=== PATIENT | female | born 1980 | race Caucasian/White ===

== ENCOUNTER 2023-01-01 09:05 | Outpatient (CLI) | payer BC, SELFPAY ==
--- NOTE | 2023-01-01 09:15 | CRLHL7_ITS ---
For Patients: As a result of the Century Cures Act, medical imaging exams and procedure reports are released immediately into your electronic medical record. You may view this report before your referring provider. If you have questions, please contact your health care provider. BILATERAL SCREENING MAMMOGRAM WITH COMPUTER-AIDED DETECTION AND TOMOSYNTHESIS TECHNIQUE: CC and MLO views were obtained. These mammographic images have been obtained using full-field digital technique. These mammographic images were interpreted with the benefit of computer-aided detection. Breast Tomosynthesis was used in this interpretation. COMPARISON FILM: 12/26/21, 10/18/20. FINDINGS: The breasts are heterogeneously dense, which may obscure small masses IMPRESSION: There is no radiographic evidence for malignancy. ASSESSMENT: BI-RADS Category 1: Negative RECOMMENDATION: Routine screening mammogram in 1 year. A lay language report of this examination will be provided to the patient. Lisa Adhikari M.D. Diagnostic/Breast Radiologist [email or web address] marte/Dictated by: Lisa Adhikari MD @ 01/01/2023 10:28:00 AM (Electronically Signed)
== END 2023-01-01 09:06 | disposition home or self-care (01) ==
LOC: MAMMO 09:07
PROVIDERS: Visit Provider Physician Assistant
DX: Z12.31 Encounter for screening mammogram for malignant neoplasm of breast (principal); R92.2 Inconclusive mammogram
CPT/HCPCS: 77063; 77067

== ENCOUNTER 2023-09-02 08:06 | Outpatient (CLI) | payer BC, SELFPAY ==
--- NOTE | 2023-09-02 08:15 | CRLHL7_ITS ---
For Patients: As a result of the Century Cures Act, medical imaging exams and procedure reports are released immediately into your electronic medical record. You may view this report before your referring provider. If you have questions, please contact your health care provider. INDICATION: IRREGULAR BLEEDING COMPARISON: 06/28/2015 TECHNIQUE: 2D mccrary scale and color Doppler images were acquired of the pelvis using a transabdominal and transvaginal approach. FINDINGS: Sonographic images demonstrate a normal size and smooth outer contour of the uterus. Uterus measures 8.2 cm in length by 3.5 cm in AP diameter by 4.2 cm in transverse dimension. The myometrium has a normal uniform echotexture. The endometrial lining appears heterogeneous and thickened and measures 15 mm in composite thickness. Possible endometrial polyp measuring 12 x 10 x 13 millimeters. The right ovary measures 3.4 x 1.7 x 2.1 cm in size and the left ovary is not visualized. 2.0 cm simple cyst right ovary. The right ovary demonstrates normal arterial and venous blood flow on color Doppler analysis. There are no suspicious fluid collections within the cul-de-sac. IMPRESSION: Thickened and heterogeneous endometrium measuring 15 millimeters of possible endometrial polyp measuring 13 millimeters. No uterine fibroid. Dictated by Yanick Pollock MD @ 09/02/2023 10:12:06 AM (Electronically Signed)
== END 2023-09-02 08:07 | disposition home or self-care (01) ==
LOC: US 08:06
PROVIDERS: PCP Physician Assistant; Visit Provider Physician Assistant
DX: N92.6 Irregular menstruation, unspecified (principal); R93.89 Abnormal findings on diagnostic imaging of other specified body structures; Z87.42 Personal history of other diseases of the female genital tract
CPT/HCPCS: 76830; 76856; 84443; 84703

== ENCOUNTER 2023-11-10 07:56 | Day surgery (SDC) | payer BC, SELFPAY ==
[2023-11-10 08:08] VITALS: BMI 33.3
[2023-11-10 08:19] VITALS: BP 146/86; PULSE 95; RESP 16; TEMP 37.2; O2SAT 99
[2023-11-10 08:29] LABS: Hemoglobin* 13.4 gm/dL (12.0-16.0)
[2023-11-10] MEDS: LACTATED RINGERS 1000 ML 1,000 ML 100 ML IV (08:34)
[2023-11-10 08:38] LABS: Ur HCG Qualitative* Negative (Negative)
--- NOTE | 2023-11-10 09:38 | W.ANESCHARGE ---
Anesthesia Charges Start Date/Time Anesthesia Start Date: 11/10/23 Anesthesia Start Time: 08:54 Stop Date/Time Anesthesia Stop Date: 11/10/23 Anesthesia Stop Time: 09:41
[2023-11-10 09:39] VITALS: BP 127/76; PULSE 90; RESP 16; TEMP 36.8; O2SAT 97
--- NOTE | 2023-11-10 09:42 | W.PM.H&PU ---
History & Physical Update History & Physical Update H&P Reviewed and patient assessed: No changes noted
--- NOTE | 2023-11-10 09:57 | W.PM.GYNPROC ---
Procedure Note Time Seen by Provider: 11:37 Date of procedure: 11/10/23 Procedure: Preoperative diagnosis: Mary is a 43 year-old with abnormal uterine bleeding - secondary to polypectomy. Postoperative diagnosis: Same Procedure: Hysteroscopy, polypectomy, and dilation and curettage. Anesthesia: Conscious sedation with paracervical block. Surgeon:Suzanna Aldana MD Estimated blood loss: <5 mL Specimen: Endometrial curettings/polyp to pathology. IVF: 600 cc UOP: 50 cc Findings: Exam under anesthesia: Cervix palpates normal. Uterus: anteverted position, 6 week size, mobile, without nodularity/masses palpable. Adnexa were without fullness or nodularity. On hysteroscopy: Obvious pedunculated polyp noted near the right tubal ostia. Normal bilateral tubal ostia. Procedure: Mary was taken to the operating where conscious sedation was found to be adequate. She was placed in the dorsal lithotomy position. An exam under anesthesia was performed with findings stated above. She was then prepped and draped in normal sterile manner. A bivalve metal speculum was placed in the vaginal canal. The cervix and vaginal canal appear normal. A paracervical block was placed using 1% lidocaine with epinephrine: 5 mL injected at the 4 and 8 o'clock positions on the cervix. The anterior lip of the cervix was then grasped with a long tenaculum. The cervix was dilated to Hegar 6. The uterus sounded to 8 cm. The hysteroscope advanced into the uterus and a diagnostic hysteroscopy was performed with findings stated above. Normal saline was used as the insufflation medium. The soft tissue shaver was used to perform the polypectomy and global sampling afterwards. The hysteroscope was then removed. Fluid deficit at the end of the procedure 35 mL. The hysteroscope and Allis clamp were removed from the uterus and cervix. Excellent hemostasis noted. Nothing was used for hemostasis. The patient tolerated the procedure well. Sponge, lap and instruments counts were correct at the end of the procedure. The patient was awakened from anesthesia and taken to the recovery area in stable condition. Surgical debrief performed at the end of the procedure.
[2023-11-10 10:02] VITALS: BP 113/70; PULSE 77; RESP 16; O2SAT 98
[2023-11-10 10:44] VITALS: BP 128/74; PULSE 74; RESP 16; O2SAT 99
--- NOTE | 2023-11-10 11:40 | W.ANESCHARGE ---
Anesthesia Charges Start Date/Time Anesthesia Start Date: 11/10/23 Anesthesia Start Time: 08:54 Stop Date/Time Anesthesia Stop Date: 11/10/23 Anesthesia Stop Time: 09:41
== END 2023-11-10 11:08 | disposition home or self-care (01) ==
PROVIDERS: PCP Family Medicine; Visit Provider Obstetrics & Gynecology
PROC: 0UDB8ZZ Extraction of Endometrium, Via Natural or Artificial Opening Endoscopic (ICD-10-PCS; CPT 58558; principal; 2023-11-10 09:15)
DX: N93.8 Other specified abnormal uterine and vaginal bleeding (principal); N84.0 Polyp of corpus uteri
CPT/HCPCS: 58558; 00952; 36415; 81025; 85018; 86850; 86900; 86901; 88305; J1100; J2250; J2405; J2704; J3010; J7120

== ENCOUNTER 2024-01-14 10:03 | Outpatient (CLI) | payer BC, SELFPAY ==
--- NOTE | 2024-01-14 10:15 | MM_ITS ---
Patient: SISSY MESSER Facility:?[facility] Patient ID:?[id number] Site Patient ID:?[id number]. Site :?[id number] Study:?XRay-Breast Bilateral 3D screening mammogram w/cad-01/14/2024 10:29:24 AM Ordering Physician:KAMILLA Final Report: BILATERAL SCREENING MAMMOGRAM WITH COMPUTER-AIDED DETECTION AND TOMOSYNTHESIS TECHNIQUE: CC and MLO views were obtained. These mammographic images have been obtained using full-field digital technique. These mammographic images were interpreted with the benefit of computer-aided detection. Breast Tomosynthesis was used in this interpretation. COMPARISON FILM: 01/01/23, 12/26/21, 10/18/20. FINDINGS: The breasts are extremely dense, which lowers the sensitivity of mammography. IMPRESSION: There is no radiographic evidence for malignancy. ASSESSMENT: BI-RADS Category 1: Negative RECOMMENDATION: Routine screening mammogram in 1 year. A lay language report of this examination will be provided to the patient. Yanick Pollock M.D. Diagnostic Radiologist [email or web address] DSM/sp R& Transcribed: 2:54 p.m. SP/Dictated by: Yanick Pollock MD @ 01/14/2024 12:10:00 PM Signed by:?Yanick Pollock MD @01/14/2024 3:00:00 PM (Electronic Signature)
== END 2024-01-14 10:04 | disposition home or self-care (01) ==
LOC: MAMMO 10:04
PROVIDERS: PCP Family Medicine; Visit Provider Physician Assistant
DX: Z12.31 Encounter for screening mammogram for malignant neoplasm of breast (principal); R92.2 Inconclusive mammogram
CPT/HCPCS: 77063; 77067

== ENCOUNTER 2024-01-21 10:24 | Outpatient (CLI) | payer BC, SELFPAY | END 2024-01-21 10:25 | disposition home or self-care (01) | PROVIDERS: PCP Family Medicine; Visit Provider Physician Assistant | DX: Z13.1 Encounter for screening for diabetes mellitus (principal); Z13.29 Encounter for screening for other suspected endocrine disorder; Z13.220 Encounter for screening for lipoid disorders | CPT/HCPCS: 80061; 82947; 84443 ==

== ENCOUNTER 2024-04-14 14:42 | Outpatient (CLI) | payer BC, SELFPAY ==
--- OUTSIDE RECORDS SUMMARY | 2024-04-14 14:44 | XMS_ITS | Clinical Summary ---
Author Organization [facility] Address [place], [place] [address] Care Team Providers Care Grades 1 Thru 6 Visiting Teacher Name Role Phone Pcp, No Primary Care Provider Unavailabl e Allergies Active Allergy Reactions Criticality Noted Date Comments Benzoyl Peroxide-Blemish Cnclr Rash 03/25 Medications Medication Sig Dispensed Refills Start Date End Date Status mitoMYcin 0.15 mg/mL ophth. soln. 0.5 mL syringe(DANIEL AMB MIXTURE) Use as directed for procedure. Keep frozen. Expires: 0.5 mL 08/11/2013 Active levonorgestrel-ethin yl estrad, 0.1mg-20mcg, (AVIANE) 0.1-20 mg-mcg tablet Take 1 tablet by mouth once daily. 0 03/25/2015 Active hydrOXYzine HCl (ATARAX) 10 mg tabletIndications:Co ntact dermatitis 1-2 pills every 6 hours for itching. 24 tablet 2 03/25/2015 Active hydrocortisone 2.5% creamIndications:Con tact dermatitis Apply topically to affected area(s) 2 times daily. 45 g 1 03/25/2015 Active Active Problems Problem Noted Date Diagnosed Date Vitamin D deficiency 11/03/2010 Encounters Date Type Department Care Team Description 01/21/2024 Lab Requisition [facility] [phone] Aubree Davila PA-C from Last 3 Months Immunizations Name Administration Dates Next Due Td (Age >=7 Years) 03/19/2005 Family History Medical History Relation Name Comments Diabetes Maternal Grandmother Hypertension Maternal Grandmother Hypertension Mother Diabetes Paternal Aunt 1 Cancer-breast Paternal Aunt 2 Alcohol/Drug Paternal Grandfather Cancer Paternal Grandmother lung Diabetes Paternal Uncle 1 Alcohol/Drug Paternal Uncle 2 Seizures Sister Relation Name Status Comments Maternal Grandmother Mother Paternal Aunt 1 Paternal Aunt 2 Paternal Grandfather Paternal Grandmother Paternal Uncle 1 Paternal Uncle 2 Sister Social History Tobacco Use Types Packs/Day Years Used Date Smoking Tobacco: Former Cigarettes 0.2 3 0 03/25/2008 - 03/25/2011 Smokeless Tobacco: Never Tobacco Cessation:Counseling Given: Yes Comments:Quit 3-4 years ago Alcohol Use Standard Drinks/Week Comments Yes 0 (1 standard drink = 0.6 oz pur e alcohol) occasional Sex and Gender Information Value Date Recorded Sex Assigned at Not on file Gender Identity Not on file Sexual Orientation Not on file Obstetrics History Last Filed Vital Signs Vital Sign Reading Time Taken Comments Blood Pressure 117/72 03/02/2017 4:51 PM CDT Pulse 74 03/02/2017 4:51 PM CDT Temperature 37.4 ??C (99.3 ??F) 03/02/2017 4:51 PM CD T Respiratory Rate - - Oxygen Saturation 100% 03/02/2017 4:51 PM CDT Inhaled Oxygen Concentration - - Weight 74.3 kg (163 lb 11.2 oz) 03/02/2017 4:51 PM CDT Height 166.5 cm (5' 5.55) 03/02/2017 4:51 PM CD T Body Mass Index 26.79 03/02/2017 4:51 PM CDT Plan of Treatment Health Maintenance Due Date Last Done Comments Tdap 1991 Depression screening for age 12+ 1992 HIV for age 15-65 1995 Hepatitis C screening for age 18-79 1998 Tetanus booster 03/19/2015 03/19/2005 BMI (ht and wt on same day) for age 18+ 03/02/2018 03/02/2017 COVID-19 vaccine series (2022- season) 2023 Influenza for age 9-49 07/09/2024 Pap test for age 21-65 01/20/2027 4, 01/21/2024, 08/11/2019, Additional history exists Pneumococcal series for age 6-64 Aged Out No longer eligible based on patient's age to complete this topic Procedures Procedure Name Priority Date/Time Associated Diagnosis Comments LAB TRACKING EVENT Routine 01/21/2024 10 :35 AM CDT CORNER BEAD OPERATOR THIN PREP PAP SCREEN IMAGED Routine 01/21/2024 10:35 AM CDT HPV THIN PREP Routine 01/21/2024 10:35 AM CDT from Last 3 Months Results * LAB TRACKING EVENT (01/21/2024 10:35 AM CDT) Other (Other) Client Collect / Unknown 01/21/2024 10:35 AM CDT 01/21/2024 3:34 PM CDT Aubree Davila PA-C LAB BILL ONLY [facility] [address] [place] [address], * CORNER BEAD OPERATOR THIN PREP PAP SCREEN IMAGED (01/21/2024 10:35 AM CDT) Case Report Gynecologic Cytology Report ? Case: [id number] ? Authorizing Provider: ??Aubree Davila PA-C ?Collected: ? 01/21/2024 1035 ? Ordering Location: ? [facility] ?Received: ?01/21/2024 1738 ? First Screen: ?Karen Ruiz ? Specimen: ?CORNER BEAD OPERATOR ThinPrep Vial Screening, Cervical ? 01/30/2024 4:57 PM CDT [facility] INTERPRETATION/ RESULT NEGATIVE FOR INTRAEPITHELIAL LESION OR MALIGNANCY (NIL) (none) 01/30/2024 4:57 PM CDT [facility] IMEN ADEQUACY Satisfactory for evaluation Endocervical component present 01/30/2024 4:57 PM CDT [facility] HPV REQUEST HPV and PAP 01/30/2024 4:57 PM CDT [facility] Date of LMP 01/11/2024 01/30/2024 4:57 PM CDT [facility] Last Pap Date 08/11/2019 01/30/2024 4:57 PM CDT [facility] Last Pap Result NIL 4:57 PM CDT [facility] Abnormal Pap or Hinckley Bx in last 5 years No 01/30/2024 4:57 PM CDT [facility] Menstrual Status Regular Periods 01/30/2024 4:57 PM CDT [facility] Hinckley Bx Done Today No 01/30/2024 4:57 PM CDT [facility] Additional Information 01/30/2024 4:57 PM CDT [facility] Comment: Interpreted at [facility] - [address], [place] [address] Automated Review Successful 01/30/2024 4:57 PM CDT [facility] Comment:Specimen processed s uccessfully by automated lightning rod installer device, ThinPrep Imaging System, [employer] ANCILLARY TESTING CORNER BEAD OPERATOR HPV Ordered, Please see separate report 01/30/2024 4:57 PM CDT [facility] Note The pap test is a screening technique, not a diagnostic procedure. It is used primarily to screen for squamous cancers and precursor lesions. Published studies have shown that it is subject to both false negative and false positive results. The pap test should not be used as the sole means to diagnose or exclude pre-malignant and malignant lesions. 01/30/2024 4:57 PM CDT [facility] Other (Cervical) 01/21/2024 10:35 AM CDT 01/21/2024 5:38 PM CDT February Tomasa Davila PA-C PATHOLOGY/CYTOLOGY Performing Organization Address [facility] Co de Phone Number [facility] [address] [place] [address], * HPV HIGH RISK (01/21/2024 10:35 AM CDT) TYPE 16 Negative Negative 01/25/2024 4:13 PM CDT [facility] [employer] [facility] TYPE 18 Negative Negative 01/25/2024 4:13 PM CDT [facility] OTHER HIGH RISK TYPES Negative Negative 01/25/2024 4:13 PM CDT [facility] [employer] [facility] Other (Cervical) 01/21/2024 10:35 AM CDT 01/21/2024 5:38 PM CDT Narrative [facility] - 01/25/2024 4:13 PM CDT HPV types 16, 18, 31, 33, 35, 39, 45, 51, 52, 56, 58, 59, 66 and 68 DNA were undetectable or below the pre-set threshold. Methodology: Maday Eliud 4800 HPV Test February Tomasa Davila PA-C MICROBIOLOGY Performing Organization Address City/[facility] Co de Phone Number [facility] [address] [place] [address], from Last 3 Months Care Teams Grades 1 Thru 6 Visiting Teacher Relationship Specialty Start Date End Date Pcp, No . PCP - General 09/07/13
--- NOTE | 2024-04-14 15:00 | CRLHL7_ITS ---
For Patients: As a result of the Cures Act, medical imaging exams and procedure reports are released immediately into your electronic medical record. You may view this report before your referring provider. If you have questions, please contact your health care provider. INDICATION: Iodine deficiency related goiter TECHNIQUE: Conventional two-dimensional mccrary-scale ultrasound of the thyroid gland. COMPARISON: None. FINDINGS: Numerous benign cystic nodules (TR1-TR2) are demonstrated both thyroid lobes with the largest in the left lobe measuring up to 1.0 cm the largest in the up 1.6 cm. The right lobe measures 5.5 x 1.5 x 1.8 cm and the left lobe 5.5 x 1.6 x 2.0 cm. The isthmus measures 3 mm in thickness. IMPRESSION: Numerous benign cystic nodules (TR1-TR2) in both thyroid lobes. ACR TI-RADS: TR1: Benign No FNA TR2: Not Suspicious No FNA TR3: Mildly Suspicious FNA if greater than or equal to 2.5 cm Follow if greater than or equal to 1.5 cm and less than 2.5 cm TR4: Moderately Suspicious FNA if greater than or equal to 1.5 cm Follow if greater than or equal to 1 cm and less than 1.5 cm TR5: Highly Suspicious FNA if greater than or equal to 1 cm Follow if greater than or equal to 0.5 cm and less than 1.0 cm Dictated by Tad Gao MD @ 04/17/2024 7:22:50 AM (Electronically Signed)
== END 2024-04-14 14:43 | disposition home or self-care (01) ==
LOC: US 14:43
PROVIDERS: PCP Family Medicine; Visit Provider Family Medicine
DX: E01.0 Iodine-deficiency related diffuse (endemic) goiter (principal); E04.1 Nontoxic single thyroid nodule
CPT/HCPCS: 76536

== ENCOUNTER 2025-01-19 09:07 | Outpatient (CLI) | payer BC, SELFPAY ==
--- NOTE | 2025-01-19 09:15 | CRLHL7_ITS ---
For Patients: As a result of the Century Cures Act, medical imaging exams and procedure reports are released immediately into your electronic medical record. You may view this report before your referring provider. If you have questions, please contact your health care provider. BILATERAL SCREENING MAMMOGRAM WITH COMPUTER-AIDED DETECTION AND TOMOSYNTHESIS TECHNIQUE: CC and MLO views were obtained. These mammographic images have been obtained using full-field digital technique. These mammographic images were interpreted with the benefit of computer-aided detection. Breast tomosynthesis was used in this interpretation. COMPARISON FILM: 01/14/24, 01/01/23, 12/26/21. FINDINGS: The breasts are extremely dense, which lowers the sensitivity of mammography. IMPRESSION: There is no radiographic evidence for malignancy. ASSESSMENT: BI-RADS Category 1: Negative RECOMMENDATION: Routine screening mammogram in 1 year. A lay language report of this examination will be provided to the patient. YANICK GRANDE M.D. Diagnostic Radiologist [email or web address] ROSA/[email or web address] Transcribed: 01/19/2025, 1:[address]/Dictated by: Yanick Grande MD @ 01/19/2025 9:55:00 AM (Electronically Signed)
== END 2025-01-19 09:08 | disposition home or self-care (01) ==
LOC: MAMMO 09:08
PROVIDERS: PCP Family Medicine; Visit Provider Physician Assistant
DX: Z12.31 Encounter for screening mammogram for malignant neoplasm of breast (principal); R92.343 Mammographic extreme density, bilateral breasts
CPT/HCPCS: 77063; 77067

== ENCOUNTER 2025-08-30 08:38 | Outpatient (CLI) | payer BC, SELFPAY ==
--- NOTE | 2025-08-30 09:52 | P.ANES_ITS ---
Anesthesia Charges Start Date/Time Anesthesia Start Date: 08/30/25 Anesthesia Start Time: 09:10 Stop Date/Time Anesthesia Stop Date: 08/30/25 Anesthesia Stop Time: 09:42 Coding CPT Codes CPT Codes: CHITO LWR INTST SCR COLSC - 09375 ([id number]) P2 - PATIENT W/MILD SYST DISEASE, QK - CONSUMER SCIENCE TEACHER 2-4 CNCRNT ANES PROC, QX - HYDROELECTRIC COMPONENT MACHINIST SVC W/ MD MED DIRECTION
--- NOTE | 2025-08-30 09:52 | W.ANESCHARGE ---
Anesthesia Charges Start Date/Time Anesthesia Start Date: 08/30/25 Anesthesia Start Time: 09:10 Stop Date/Time Anesthesia Stop Date: 08/30/25 Anesthesia Stop Time: 09:42 Coding CPT Codes CPT Codes: CHITO LWR INTST SCR COLSC - 53279 ([id number]) P2 - PATIENT W/MILD SYST DISEASE, QK - VP CORPORATE DEVELOPMENT 2-4 CNCRNT ANES PROC, QX - VIDEO RECORDER MECHANIC SVC W/ MD MED DIRECTION
--- NOTE | 2025-08-30 12:06 | P.ANES_ITS ---
Anesthesia Charges Start Date/Time Anesthesia Start Date: 08/30/25 Anesthesia Start Time: 09:10 Stop Date/Time Anesthesia Stop Date: 08/30/25 Anesthesia Stop Time: 09:42 Coding CPT Codes CPT Codes: CHITO LWR INTST SCR COLSC - 87717 ([id number]) P2 - PATIENT W/MILD SYST DISEASE, QX - CAR WASH ATTENDANT AUTOMATIC SVC W/ MD MED DIRECTION, QK - MINERALOGY PROFESSOR 2-4 CNCRNT ANES PROC
--- NOTE | 2025-08-30 12:06 | W.ANESCHARGE ---
Anesthesia Charges Start Date/Time Anesthesia Start Date: 08/30/25 Anesthesia Start Time: 09:10 Stop Date/Time Anesthesia Stop Date: 08/30/25 Anesthesia Stop Time: 09:42 Coding CPT Codes CPT Codes: CHITO LWR INTST SCR COLSC - 14956 ([id number]) P2 - PATIENT W/MILD SYST DISEASE, QX - ECONOMICS CONSULTANT SVC W/ MD MED DIRECTION, QK - IT SYSTEMS ANALYST CONSULTANT 2-4 CNCRNT ANES PROC
== END 2025-08-30 08:39 | disposition home or self-care (01) ==
LOC: OP CLINIC 08:39
PROVIDERS: PCP Family Medicine; Visit Provider Surgery
DX: Z12.11 Encounter for screening for malignant neoplasm of colon (principal); Z80.0 Family history of malignant neoplasm of digestive organs
CPT/HCPCS: 00812; 45378; J2704